=== PATIENT | female | born 1990 | race Hispanic/Latino ===

== ENCOUNTER 2022-02-09 09:43 | Outpatient (CLI) | payer OTHER ==
[2022-02-09 18:34] LABS: SARS-CoV-2 PCR by NAA Not Detected (NotDetected)
== END 2022-02-09 09:44 | disposition home or self-care (01) ==
LOC: CSHLAB 09:43
PROVIDERS: ATTEND Family Medicine
DX: Z20.822 Contact with and (suspected) exposure to COVID-19 (principal)
CPT/HCPCS: U0003; U0005

== ENCOUNTER 2022-02-14 18:00 | Inpatient (IN) | payer MEDICAID, OTHER, SELFPAY ==
[2022-02-15 02:23] VITALS: BMI 34.0
[2022-02-15] MEDS: Lactated Ringer's 1,000 ML IV SCH ×2 (02:50→21:28)
[2022-02-15] MEDS ORDERED: Butorphanol Tartrate 1 MG/ML VIAL SLOW IVP PRN (03:11)
[2022-02-15] MEDS ORDERED: Promethazine HCl 25 MG/ML VIAL IM PRN ×2 (03:11→05:13)
[2022-02-15] MEDS ORDERED: Acetaminophen 500 MG TAB PO PRN (03:11)
[2022-02-15] MEDS ORDERED: hydrALAZINE 20 MG/ML VIAL SLOW IVP PRN ×2 (03:11→18:12)
[2022-02-15] MEDS ORDERED: Ondansetron PF 4 MG/2 ML Vial IVP PRN ×2 (03:11→05:13)
[2022-02-15] MEDS ORDERED: Lidocaine 1% (PF) 30 ML VIAL SC PRN (03:19)
[2022-02-15] MEDS ORDERED: Carboprost 250 MCG/ML AMP IM PRN (03:19)
[2022-02-15] MEDS ORDERED: Ibuprofen 800 MG TAB PO PRN (03:19)
[2022-02-15] MEDS ORDERED: Misoprostol 200 MCG TAB PR PRN (03:19)
[2022-02-15] MEDS ORDERED: Diphenoxylate HCl/Atropine Tablet PO PRN (03:19)
[2022-02-15] MEDS ORDERED: Methylergonovine 0.2 MG/ML VIAL IM PRN (03:19)
[2022-02-15 03:54] LABS: Hemoglobin 12.4 g/dL (12.0-15.5); Mean Corpuscular HGB CONC 33.4 g/dL (32.0-36.0); Mean Corpuscular Hemoglobin 30.5 pg (27.0-33.0); Mean Corpuscular Volume 91.4 fl (81.6-98.3); Mean Platelet Volume 9.5 fl (7.4-10.4); Platelet Count 271 10x3/uL (150-450); RBC Distribution Width 13.5 % (11.5-14.5); Red Blood Cell (RBC) Count 4.06 10x6/uL (3.90-5.03); White Blood Cell (WBC) Count 8.5 10x3/uL (3.5-10.5)
[2022-02-15] MEDS ORDERED: NS w/ Oxytocin 30 units 500 ML IV SCH ×3 (04:00→18:12)
[2022-02-15] MEDS ORDERED: Misoprostol 100 MCG TAB VAG SCH (04:00)
[2022-02-15] MEDS ORDERED: Fentanyl 2 mcg/Bup 0.1% Cadd 100 ML ONE ×2 (04:07→11:44)
[2022-02-15] MEDS ORDERED: Penicillin G Potassium 5 MILL.UNITS VIAL ONE (04:10)
[2022-02-15] MEDS ORDERED: Penicillin G Potassium 5 MILL.UNITS in Sodium Chloride 0.9% 100 ML IVPB SCH (04:15)
[2022-02-15 04:25] LABS: Hep B Surf Ag Non-Reactive S/CO (NonReactive)
[2022-02-15 04:26] LABS: Syphilis Antibody Nonreactive (Nonreactive); Syphilis Antibody Index 0.04 S/CO (<1.00 Non-Reactive)
[2022-02-15 04:35] LABS: HBSAg Index 0.15 S/CO (0-0.99)
[2022-02-15] MEDS ORDERED: Acetaminophen 325 MG TAB PO PRN (05:13)
[2022-02-15] MEDS ORDERED: diphenhydrAMINE 50 MG/ML VIAL IVP PRN (05:13)
[2022-02-15] MEDS ORDERED: Naloxone HCl 0.4 mg/ml Vial IVP PRN ×2 (05:13)
[2022-02-15] MEDS ORDERED: ePHEDrine Sulfate 50 MG/10 ML VIAL SLOW IVP PRN (05:13)
[2022-02-15] MEDS ORDERED: Lactated Ringer's 500 ML IV PRN (05:13)
[2022-02-15] MEDS ORDERED: Moisturizing Cream (Eucerin) 113 GM JAR TOP PRN (05:13)
[2022-02-15] MEDS ORDERED: Communication Order-Pharmacy FS SCH (05:15)
[2022-02-15] MEDS ORDERED: Fentanyl 2 mcg/Bupivacaine 0.1% Cassette 100 ML EPIDURAL SCH (05:15)
[2022-02-15] MEDS ORDERED: Lidocaine 2% 10 ML INJ ONE (08:00)
[2022-02-15] MEDS: Penicillin G 2.5 MILL.units 2.5 MILL.UNITS in Premix Bag 1 BAG IVPB SCH ×3 (08:20→21:28)
[2022-02-15] MEDS ORDERED: Methylergonovine 0.2 MG/ML VIAL ONE (16:56)
[2022-02-15] MEDS ORDERED: Boostrix 0.5 ML (Tdap) VIAL IM ONE (18:12)
[2022-02-15] MEDS ORDERED: Varicella virus, LIVE 0.5 ML VIAL SC ONE (18:12)
[2022-02-15] MEDS ORDERED: Bisacodyl 10 MG SUPP PR PRN (18:12)
[2022-02-15] MEDS ORDERED: Lanolin Ointment 7 GM TUBE TOP PRN (18:12)
[2022-02-15] MEDS ORDERED: Benzocaine-Menthol 82.5 ML CAN TOP PRN (18:12)
[2022-02-15] MEDS ORDERED: Measles/Mumps/Rubella 10 MCG/0.5 ML VIAL SC ONE (18:12)
[2022-02-15] MEDS ORDERED: Milk Of Magnesia 30 ML UDCUP PO PRN (18:12)
[2022-02-15] MEDS ORDERED: diphenhydrAMINE 25 MG CAP PO PRN (18:12)
[2022-02-15] MEDS: Ibuprofen 800 MG TAB PO SCH (21:33)
[2022-02-15] MEDS: Docusate 100 MG CAP PO SCH (21:34)
[2022-02-16] MEDS: Ibuprofen 800 MG TAB PO SCH ×2 (05:16→14:20)
[2022-02-16] MEDS: Ferrous Sulfate 325 MG TAB PO SCH ×2 (07:50→18:05)
[2022-02-16] MEDS ORDERED: Prenatal Vitamin 1 TAB PO SCH (09:00)
[2022-02-16] MEDS: Docusate 100 MG CAP PO SCH (09:29)
[2022-02-16 21:59] VITALS: BP 127/86; TEMP 98.1
== END 2022-02-16 20:00 | disposition home or self-care (01) | DRG 807 ==
LOC: CSHLD 02-15 02:00 → CSHPP 02-15 20:50
PROVIDERS: ADMIT Family Medicine; ATTEND Family Medicine
PROC: 10E0XZZ Delivery of Products of Conception, External Approach (ICD-10-PCS; principal; 2022-02-15)
PROC: 10907ZC Drainage of Amniotic Fluid, Therapeutic from Products of Conception, Via Natural or Artificial Opening (ICD-10-PCS; 2022-02-15)
PROC: 10H07YZ Insertion of Other Device into Products of Conception, Via Natural or Artificial Opening (ICD-10-PCS; 2022-02-15)
PROC: 0HQ9XZZ Repair Perineum Skin, External Approach (ICD-10-PCS; 2022-02-15)
DX: O99.824 Streptococcus B carrier state complicating childbirth (principal); Z37.0 Single live birth; Z3A.39 39 weeks gestation of pregnancy; O70.0 First degree perineal laceration during delivery; E66.9 Obesity, unspecified; O99.214 Obesity complicating childbirth; O35.8XX0 Maternal care for other (suspected) fetal abnormality and damage, not applicable or unspecified
CPT/HCPCS: 36415; 51702; 85027; 86780; 86850; 86900; 86901; 87340; J2540; J2590; J3490; J7120